=== PATIENT | female | born 1960 | race Caucasian/White ===

== ENCOUNTER → 2016-12-10 | Outpatient (CLI) | payer BC ==
--- NOTE | 2016-12-10 15:07 | CTL ---
EXAMINATION TYPE: CT Low Dose Lung DATE OF EXAM ORDERED: 12/10/2016 2:50 PM COMPARISON: None HISTORY: . Low Dose CT Lung Screening CT DLP: 83.[address] CTDI: 2.2 mGy IV CONTRAST USED: None. SCREENING VISIT: First visit COMPARISON: None. TECHNIQUE: Low dose computed tomography scan was performed through the chest at 1 millimeter thick se ctions and reconstructed images in the coronal plane at [address] DIAGNOSTIC QUALITY: Satisfactory FINDINGS: LUNG NODULES: Solid nodule left lateral segment right middle lobe measures 5 mm image 186. Small solid nodule later al segment right middle lobe measures 3.3 mm image 198. Small solid nodule right lower lobe image 232 measures 2.7 mm. No left-sided pulmonary nodules are identified. LUNGS: COPD: Severity: Mild Fibrosis: Severity:None Lymph nodes: None Other findings: None RIGHT PLEURAL SPACE: Effusion: None Calcification: None Thickening: None Pneumothorax: None LEFT PLEURAL SPACE: Effusion: None Calcification: None Thickening: None Pneumothorax: None HEART: Heart Size: Mildly enlarged Coronary calcification: Mild Pericardial effusion: None OTHER FINDINGS: Upper abdomen: No significant abnormality Bony thorax: Degenerative changes Supraclavicular region: No significant abnormalityOther: No significant abnormalityI IMPRESSION: Benign FOLLOW UP CT CHEST RECOMMENDATION: Follow-up screening in one year CT LUNG RAD: LUNG RAD CATEGORY 2
--- NOTE | 2016-12-10 15:52 | US ---
EXAMINATION TYPE: US carotid duplex BILAT DATE OF EXAM: 12/10/2016 3:09 PM COMPARISON: NONE CLINICAL HISTORY: R42 Dizziness,Z72.0 Tobacco use. SOB, COPD, dizziness EXAM MEASUREMENTS: RIGHT: Peak Systolic Velocity (PSV) cm/sec ----- Right CCA: 80.1 ----- Right ICA: 84.5 ----- Right ECA: 86.7 ICA/CCA ratio: 1.1 RIGHT: End Diastole cm/sec ----- Right CCA: 24.1 ----- Right ICA: 38.4 ----- Right ECA: 16.4 LEFT: Peak Systolic Velocity (PSV) cm/sec ----- Left CCA: 73.9 ----- Left ICA: 85.3 ----- Left ECA: 64.6 ICA/CCA ratio: 1.2 LEFT: End Diastole cm/sec ----- Left CCA: 23.7 ----- Left ICA: 36.1 ----- Left ECA: 11.5 VERTEBRALS (direction of flow): Right Vertebral: Antegrade Left Vertebral: Antegrade TECHNOLOGIST IMPRESSION: Minimal plaque noted bilateral bifurcations. NO increased velocities. No si gnificant stenosis. IMPRESSION: No hemodynamic significant stenosis of the proximal internal carotid arteries bilaterall y by Doppler criteria, an indirect measurement of carotid stenosis
--- NOTE | 2016-12-11 08:44 | ECHOF ---
Referral Reason:R42 dizziness MEASUREMENTS -------- HEIGHT: 165.1 cm WEIGHT: 77.1 kg BP: IVSd: 1.0 cm (0.6 - 1.1) LVIDd: 3.6 cm (3.9 - 5.3) LVPWd: 1.0 cm (0.6 - 1.1) IVSs: 1.6 cm LVIDs: 2.2 cm LVPWs: 1.5 cm Ao Diam: 3.0 cm (2.0 - 3.7) AV Cusp: 1.9 cm (1.5 - 2.6) LA Diam: 2.5 cm (2.7 - 3.8) MV EXCURSION: 13.189 mm (> 18.000) MV EF SLOPE: 84 mm/s (70 - 150) EPSS: 1.1 cm MV E Roge: 0.59 m/s MV DecT: 349 ms MV A Roge: 0.74 m/s MV E/A Ratio: 0.80 RAP: 5.00 mmHg RVSP: 30.27 mmHg FINDINGS -------- Sinus rhythm. This was a technically good study. There is mild concentric left ventricular hypertrophy. Overall left ventricular systolic function is normal with, an EF between 55 - 60 %. The right ventricle is normal in size and function. The left atrium is normal in size. The right atrium is normal in size. The aortic valve is trileaflet, and appears structurally normal. No aortic stenosis or regurgitation. There is trace mitral regurgitation. Trace tricuspid regurgitation present. The right ventricular systolic pressure, as measured by Doppler, is 30.27mmHg. Pulmonic valve appears structurally normal. The aortic root size is normal. The pericardium is normal. CONCLUSIONS -------- 1. Sinus rhythm. 2. Trace tricuspid regurgitation present. 3. The right ventricular systolic pressure, as measured by Doppler, is 30.27mmHg. 4. Pulmonic valve appears structurally normal. 5. The aortic root size is normal. 6. The pericardium is normal. 7. This was a technically good study. 8. There is mild concentric left ventricular hypertrophy. 9. Overall left ventricular systolic function is normal with, an EF between 55 - 60 %. 10. The right ventricle is normal in size and function. 11. The left atrium is normal in size. 12. The right atrium is normal in size. 13. The aortic valve is trileaflet, and appears structurally normal. No aortic stenosis or regurgitation. 14. There is trace mitral regurgitation. HUMAN RESOURCES INTERN: Dariana Patricio RDCS
== END | disposition home or self-care (01) ==
LOC: RADCTMAIN 14:19
PROVIDERS: ATTEND Family Medicine
DX: I34.0 Nonrheumatic mitral (valve) insufficiency (principal); I36.1 Nonrheumatic tricuspid (valve) insufficiency; R42 Dizziness and giddiness; Z72.0 Tobacco use
CPT/HCPCS: 93306; 93880; G0297

== ENCOUNTER → 2017-02-07 | Outpatient (CLI) | payer BC ==
--- NOTE | 2017-02-07 14:04 | XR ---
Lumbosacral spine HISTORY: Low back pain 5 views of the lumbosacral spine No comparisons There is a mild spinal curvature. Loss of disc height present at L5-S1. Bone mineralization is reduce d. Lumbar vertebral bodies show preserved height and alignment. Sclerosis present in the posterior el ements of the lower lumbar spine. LAP-BAND is present which shows a somewhat transverse orientation. Surgical clips present in the upper abdomen. IMPRESSION: Degenerative disc disease. Facet arthropathy and osteopenia. Postop changes. Correlate wi th any postoperative exam film to assess for possible lap band slip, correlate.
== END | disposition home or self-care (01) ==
LOC: RADXRMAIN 10:40
PROVIDERS: ATTEND Family Medicine
DX: M51.36 Other intervertebral disc degeneration, lumbar region (principal); M12.88 Other specific arthropathies, not elsewhere classified, other specified site; M85.80 Other specified disorders of bone density and structure, unspecified site; Z98.84 Bariatric surgery status
CPT/HCPCS: 72110

== ENCOUNTER 2018-12-11 11:12 | Inpatient (IN) | payer BC ==
[2018-12-11] MEDS ORDERED: THIAMINE 100 MG/ML 2 ML VIAL IVPB STA (11:49)
[2018-12-11] MEDS ORDERED: SODIUM CHLORIDE 0.9% 1,000 ML IV STA (11:49)
[2018-12-11 12:21] LABS: Basophils % (A) 1 %; Eosinophils # (A) 0.2 k/uL (0-0.7); Eosinophils % (A) 2 %; HCT 43.8 % (34.0-46.0); HGB 14.8 gm/dL (11.4-16.0); Lymphocytes # (A) 1.8 k/uL (1.0-4.8); Lymphocytes % (A) 27 %; MCH 31.9 pg (25.0-35.0); MCHC 33.8 g/dL (31.0-37.0); MCV 94.6 fL (80.0-100.0); Monocytes # (A) 0.3 k/uL (0-1.0); Monocytes % (A) 5 %; Neutrophils # (A) 4.2 k/uL (1.3-7.7); Neutrophils % (A) 63 %; Platelet Count 222 k/uL (150-450); RBC 4.63 m/uL (3.80-5.40); WBC 6.6 k/uL (3.8-10.6)
[2018-12-11 12:30] LABS: ALT 23 U/L (9-52); AST 19 U/L (14-36); Albumin 4.1 g/dL (3.5-5.0); Alcohol <10 mg/dL; Alkaline Phosphatase 71 U/L (38-126); Anion Gap 9 mmol/L; Blood Urea Nitrogen 10 mg/dL (7-17); Calcium 9.6 mg/dL (8.4-10.2); Carbon Dioxide 23 mmol/L (22-30); Chloride 107 mmol/L (98-107); Glucose 135 mg/dL (74-99); Lipase 70 U/L (23-300); Magnesium 1.8 mg/dL (1.6-2.3); Partial Thromboplastin Time 24.7 sec (22.0-30.0); Phosphorus 3.1 mg/dL (2.5-4.5); Potassium 4.2 mmol/L (3.5-5.1); Prothrombin Time 10.7 sec (9.0-12.0); Sodium 139 mmol/L (137-145); Total Bilirubin 0.6 mg/dL (0.2-1.3)
--- NOTE | 2018-12-11 13:15 | CT ---
EXAMINATION TYPE: CT brain wo con DATE OF EXAM: 12/11/2018 COMPARISON: None HISTORY: 58-year-old female pain, Double vision, dizziness TECHNIQUE: Examination was done in axial plane without intravenous contrast. Coronal and sagittal r econstructions performed. CT DLP: 1091.4 mGycm Automated exposure control for dose reduction was used. FINDINGS: There is no evidence of acute intracranial hemorrhage, acute ischemic changes, mass, mass-effect, or extra-axial fluid collection. There is no effacement of cerebral sulci or basal subarachnoid cister ns. There is no hydrocephalus. There is no midline shift. Jiang-white matter distinction is preserv ed. Paranasal sinuses and mastoid air cells are well pneumatized. Orbits and globes are intact. IMPRESSION: No acute intracranial abnormality seen.
--- NOTE | 2018-12-11 13:16 | ED ---
Altered Mental Status HPI - General Chief Complaint: Neuro Symptoms/Deficit Stated Complaint: double vision, dizziness Time Seen by Provider: 12/11/18 11:25 Source: patient, RN notes reviewed, old records reviewed Mode of arrival: wheelchair Limitations: no limitations, altered mental status - History of Present Illness Initial Comments: This is a 4-year-old female the ER for evaluation. This patient presents today for evaluation regards to diplopia. Patient has diplopia she said nausea this morning, family states he noticed it last night. Patient is also having some dizziness with position changes. No recent change in medications. Patient does have history of psychiatric illness. And chronic alcoholism MD Complaint: altered mental status, other (diplopia) -: days(s) Severity: mild Consistency of Symptoms: constant Context: alcohol abuse Associated Symptoms: difficulty walking - Related Data Home Medications Medication Instructions Recorded Confirmed LORazepam [Ativan] 0.5 mg PO HS 12/11/18 12/11/18 Sertraline [Zoloft] 200 mg PO DAILY 12/11/18 12/11/18 risperiDONE 2 mg PO HS 12/11/18 12/11/18 Allergies Allergy/AdvReac Type Severity Reaction Status Date / Time No Known Allergies Allergy Verified 12/11/18 11:42 Review of Systems ROS Statement: Those systems with pertinent positive or pertinent negative responses have been documented in the HPI. ROS Other: All systems not noted in ROS Statement are negative. Past Medical History Past Medical History: No Reported History History of Any Multi-Drug Resistant Organisms: None Reported Past Surgical History: No Surgical Hx Reported Past Psychological History: Bipolar Smoking Status: Current every day smoker Past Alcohol Use History: Daily Past Drug Use History: None Reported General Exam Limitations: no limitations General appearance: alert, in no apparent distress Head exam: Present: atraumatic, normocephalic, normal inspection Eye exam: Present: normal appearance, PERRL, EOMI, other (Patient does have monocular diplopia). Absent: scleral icterus, conjunctival injection, nystagmus, periorbital swelling ENT exam: Present: normal exam, mucous membranes moist Neck exam: Present: normal inspection. Absent: tenderness, meningismus, lymphadenopathy Respiratory exam: Present: normal lung sounds bilaterally. Absent: respiratory distress, wheezes, rales, rhonchi, stridor Cardiovascular Exam: Present: regular rate, normal rhythm, normal heart sounds. Absent: systolic murmur, diastolic murmur, rubs, gallop, clicks GI/Abdominal exam: Present: soft, normal bowel sounds. Absent: distended, tenderness, guarding, rebound, rigid Extremities exam: Present: normal inspection, full ROM, normal capillary refill. Absent: tenderness, pedal edema, joint swelling, calf tenderness Back exam: Present: normal inspection Neurological exam: Present: alert, oriented X3, CN II-XII intact Psychiatric exam: Present: normal affect, normal mood Skin exam: Present: warm, dry, intact, normal color. Absent: rash Course Vital Signs 12/11/18 11:17 Temperature 98.2 F Pulse Rate 77 Respiratory 16 Rate Blood Pressure 142/88 O2 Sat by Pulse 97 Oximetry Medical Decision Making - Medical Decision Making 4-year-old female to the area as well as increasing weakness symptoms of ataxia. Patient does appear to have more diffuse in the setting of chronic alcoholism, patient will be admitted for thiamine replacement alcohol withdrawal - Lab Data Result diagrams: 12/11/18 11:30 12/11/18 11:30 Lab Results 12/11/18 12/11/18 12/11/18 Range/Units 11:30 11:30 11:30 WBC 6.6 (3.8-10.6) k/uL RBC 4.63 (3.80-5.40) m/uL Hgb 14.8 (11.4-16.0) gm/dL Hct 43.8 (34.0-46.0) % MCV 94.6 (80.0-100.0) fL MCH 31.9 (25.0-35.0) pg MCHC 33.8 (31.0-37.0) g/dL RDW 13.0 (11.5-15.5) % Plt Count 222 (150-450) k/uL Neutrophils % 63 % Lymphocytes % 27 % Monocytes % 5 % Eosinophils % 2 % Basophils % 1 % Neutrophils # 4.2 (1.3-7.7) k/uL Lymphocytes # 1.8 (1.0-4.8) k/uL Monocytes # 0.3 (0-1.0) k/uL Eosinophils # 0.2 (0-0.7) k/uL Basophils # 0.0 (0-0.2) k/uL PT (9.0-12.0) sec INR (<1.2) APTT (22.0-30.0) sec Sodium 139 (137-145) mmol/L Potassium 4.2 (3.5-5.1) mmol/L Chloride 107 (98-107) mmol/L Carbon Dioxide 23 (22-30) mmol/L Anion Gap 9 mmol/L BUN 10 (7-17) mg/dL Creatinine 0.65 (0.52-1.04) mg/dL Est GFR (CKD-EPI)AfAm >90 (>60 ml/min/1.73 sqM) Est GFR (CKD-EPI)NonAf >90 (>60 ml/min/1.73 sqM) Glucose 135 H (74-99) mg/dL Calcium 9.6 (8.4-10.2) mg/dL Phosphorus 3.1 (2.5-4.5) mg/dL Magnesium 1.8 (1.6-2.3) mg/dL Total Bilirubin 0.6 (0.2-1.3) mg/dL AST 19 (14-36) U/L ALT 23 (9-52) U/L Alkaline Phosphatase 71 (38-126) U/L Ammonia 13 (<30) umol/L Total Protein 7.0 (6.3-8.2) g/dL Albumin 4.1 (3.5-5.0) g/dL Lipase 70 (23-300) U/L Urine Color Urine Appearance (Clear) Urine pH (5.0-8.0) Ur Specific Sprakers (1.001-1.035) Urine Protein (Negative) Urine Glucose (UA) (Negative) Urine Ketones (Negative) Urine Blood (Negative) Urine Nitrite (Negative) Urine Bilirubin (Negative) Urine Urobilinogen (<2.0) mg/dL Ur Leukocyte Esterase (Negative) Urine Opiates Screen (NotDetected) Ur Oxycodone Screen (NotDetected) Urine Methadone Screen (NotDetected) Ur Propoxyphene Screen (NotDetected) Ur Barbiturates Screen (NotDetected) U Tricyclic Antidepress (NotDetected) Ur Phencyclidine Scrn (NotDetected) Ur Amphetamines Screen (NotDetected) U Methamphetamines Scrn (NotDetected) U Benzodiazepines Scrn (NotDetected) Urine Cocaine Screen (NotDetected) U Marijuana (THC) Screen (NotDetected) Serum Alcohol <10 mg/dL 12/11/18 12/11/18 Range/Units 11:30 13:40 WBC (3.8-10.6) k/uL RBC (3.80-5.40) m/uL Hgb (11.4-16.0) gm/dL Hct (34.0-46.0) % MCV (80.0-100.0) fL MCH (25.0-35.0) pg MCHC (31.0-37.0) g/dL RDW (11.5-15.5) % Plt Count (150-450) k/uL Neutrophils % % Lymphocytes % % Monocytes % % Eosinophils % % Basophils % % Neutrophils # (1.3-7.7) k/uL Lymphocytes # (1.0-4.8) k/uL Monocytes # (0-1.0) k/uL Eosinophils # (0-0.7) k/uL Basophils # (0-0.2) k/uL PT 10.7 (9.0-12.0) sec INR 1.0 (<1.2) APTT 24.7 (22.0-30.0) sec Sodium (137-145) mmol/L Potassium (3.5-5.1) mmol/L Chloride (98-107) mmol/L Carbon Dioxide (22-30) mmol/L Anion Gap mmol/L BUN (7-17) mg/dL Creatinine (0.52-1.04) mg/dL Est GFR (CKD-EPI)AfAm (>60 ml/min/1.73 sqM) Est GFR (CKD-EPI)NonAf (>60 ml/min/1.73 sqM) Glucose (74-99) mg/dL Calcium (8.4-10.2) mg/dL Phosphorus (2.5-4.5) mg/dL Magnesium (1.6-2.3) mg/dL Total Bilirubin (0.2-1.3) mg/dL AST (14-36) U/L ALT (9-52) U/L Alkaline Phosphatase (38-126) U/L Ammonia (<30) umol/L Total Protein (6.3-8.2) g/dL Albumin (3.5-5.0) g/dL Lipase (23-300) U/L Urine Color Light Yellow Urine Appearance Clear (Clear) Urine pH 7.0 (5.0-8.0) Ur Specific Sprakers 1.003 (1.001-1.035) Urine Protein Negative (Negative) Urine Glucose (UA) Negative (Negative) Urine Ketones Negative (Negative) Urine Blood Negative (Negative) Urine Nitrite Negative (Negative) Urine Bilirubin Negative (Negative) Urine Urobilinogen <2.0 (<2.0) mg/dL Ur Leukocyte Esterase Negative (Negative) Urine Opiates Screen Not Detected (NotDetected) Ur Oxycodone Screen Not Detected (NotDetected) Urine Methadone Screen Not Detected (NotDetected) Ur Propoxyphene Screen Not Detected (NotDetected) Ur Barbiturates Screen Not Detected (NotDetected) U Tricyclic Antidepress Not Detected (NotDetected) Ur Phencyclidine Scrn Not Detected (NotDetected) Ur Amphetamines Screen Not Detected (NotDetected) U Methamphetamines Scrn Not Detected (NotDetected) U Benzodiazepines Scrn Not Detected (NotDetected) Urine Cocaine Screen Not Detected (NotDetected) U Marijuana (THC) Screen Not Detected (NotDetected) Serum Alcohol mg/dL - Radiology Data Radiology results: report reviewed (CT brain negative for acute disease, chest x-rays negative for acute disease), image reviewed Disposition Clinical Impression: Monocular diplopia of both eyes, Wernickes encephalopathy, Alcoholism Disposition: ADMITTED IP TO THIS [facility] Condition: Fair Is patient prescribed a controlled substance at d/c from ED?: No Referrals: Steven Romo MD [Primary Care Provider] - 1-2 days
[2018-12-11] MEDS ORDERED: THIAMINE 200 MG in SODIUM CHLORIDE 0.9% 100 ML IVPB ONE (13:30)
[2018-12-11 13:58] LABS: Appearance,Urine Clear (Clear); Bilirubin,Urine Negative (Negative); Blood,Urine Negative (Negative); Color,Urine Light Yellow; Glucose,Urine (UA) Negative (Negative); Ketones,Urine Negative (Negative); Leukocyte Esterase,Urine Negative (Negative); Nitrite,Urine Negative (Negative); Protein,Urine Negative (Negative); Specific Gravity,Urine 1.003 (1.001-1.035); Urobilinogen,Urine <2.0 mg/dL (<2.0)
[2018-12-11 14:12] LABS: Amphetamine Screen,Urine Not Detected (NotDetected); Barbiturate Screen,Urine Not Detected (NotDetected); Benzodiazepines Screen,Urine Not Detected (NotDetected); Cocaine Screen,Urine Not Detected (NotDetected); Methadone Screen, Urine Not Detected (NotDetected); Opiate Screen,Urine Not Detected (NotDetected); Oxycodone Screen, Urine Not Detected (NotDetected); Phencyclidine Screen,Urine Not Detected (NotDetected); Tricyclic Antidepressant,Urine Not Detected (NotDetected); Urn Cannabinoid Scrn Not Detected (NotDetected)
[2018-12-11] MEDS ORDERED: SODIUM CHLORIDE 0.9% 1,000 ML IV ONE (14:19)
[2018-12-11] MEDS ORDERED: LORazepam 2 MG/ML INJ IV PRN ×3 (14:19)
[2018-12-11] MEDS: THIAMINE 100 MG TAB PO SCH (18:20)
[2018-12-11] MEDS: DEXTROSE 5%-0.45% NACL 1,000 ML IV SCH (18:21)
[2018-12-11] MEDS: SERTRALINE 100 MG TAB PO SCH (20:03)
[2018-12-11] MEDS ORDERED: risperiDONE 2 MG TAB PO SCH (21:00)
[2018-12-11] MEDS: LORazepam 2 MG/ML INJ IV PRN (21:52)
[2018-12-12] MEDS: DEXTROSE 5%-0.45% NACL 1,000 ML IV SCH ×2 (01:47→14:28)
[2018-12-12] MEDS: SERTRALINE 100 MG TAB PO SCH (07:24)
[2018-12-12] MEDS: THIAMINE 100 MG TAB PO SCH ×2 (07:24→14:28)
[2018-12-12] MEDS ORDERED: ACETAMINOPHEN TAB 325 MG TAB PO PRN (07:24)
[2018-12-12] MEDS ORDERED: ENOXAPARIN 40 MG/0.4 ML SYRINGE SQ SCH (09:00)
[2018-12-12] MEDS ORDERED: MULTIVITAMINS, THERA 1 EACH TAB PO SCH (12:00)
[2018-12-12 14:55] VITALS: BP 109/69; PULSE 62; RESP 16; TEMP 97.7
--- NOTE | 2018-12-12 16:03 | P.HPIM ---
History of Present Illness H&P Date: 12/12/18 Chief Complaint: Double vision This is history and physical 58-year-old white female who struggles with alcoholism over the last 20+ years. She drinks between 4-8 beer daily. The patient has had no significant falls but does have some form of orthostasis recently. No previous history of this in the past. She states that the symptoms have started in the last 24-36 hours. Head trauma stated. No sniffing nausea, vomiting or diarrhea is stated per no overt chest pressure. Evaluation emergency room did show normal computed tomography scan of the head without contrast. However, she does complain of headache. She has right eye dominant by history. No fever or chills are stated. Review of Systems Constitutional: Reports fatigue Eyes: denies blurred vision, denies pain Ears, nose, mouth and throat: Denies headache, Denies sore throat Cardiovascular: Denies chest pain, Denies shortness of breath Respiratory: Denies cough Gastrointestinal: Denies abdominal pain, Denies diarrhea, Denies nausea, Denies vomiting Genitourinary: Denies dysuria, Denies hematuria Musculoskeletal: Denies myalgias Neurological: Reports ataxia, Reports double vision, Reports headaches, Reports weakness, Denies change in mentation, Denies change in smell/taste, Denies confusion, Denies convulsions, Denies numbness Psychiatric: Denies anxiety, Denies depression Endocrine: Denies fatigue, Denies weight change Past Medical History Past Medical History: No Reported History History of Any Multi-Drug Resistant Organisms: None Reported Past Surgical History: No Surgical Hx Reported Past Psychological History: Bipolar Smoking Status: Current every day smoker Past Alcohol Use History: Daily Past Drug Use History: None Reported Medications and Allergies Home Medications Medication Instructions Recorded Confirmed Type LORazepam [Ativan] 0.5 mg PO HS 12/11/18 12/11/18 History Sertraline [Zoloft] 200 mg PO DAILY 12/11/18 12/11/18 History risperiDONE 2 mg PO HS 12/11/18 12/11/18 History Allergies Allergy/AdvReac Type Severity Reaction Status Date / Time No Known Allergies Allergy Verified 12/11/18 11:42 Physical Exam Vitals: Vital Signs Temp Pulse Resp BP Pulse Ox 12/12/18 14:54 97.7 F 62 16 109/69 96 12/12/18 07:00 97.8 F 61 19 111/70 12/11/18 23:35 97.5 F L 68 17 105/66 97 12/11/18 19:35 97.5 F L 60 17 109/67 98 12/11/18 16:30 98.7 F 62 12 109/72 97 Intake and Output 12/12/18 12/12/18 12/12/18 06:59 14:59 22:59 Intake Total 250 200 Balance 250 200 Intake: Oral 250 200 Other: Voiding Method Toilet Toilet # Voids 2 2 - Constitutional General appearance: no acute distress - EENT Eyes: EOMI - Neck Neck: no lymphadenopathy - Cardiovascular Rhythm: regular Heart sounds: normal: S1, S2 Abnormal Heart Sounds: no S3 Gallop - Gastrointestinal General gastrointestinal: soft, no tenderness - Neurologic Neurologic: CNII-XII intact - Musculoskeletal Musculoskeletal: generalized weakness - Psychiatric Psychiatric: A&O x's 3, appropriate affect, intact judgment & insight Results CBC & Chem 7: 12/11/18 11:30 12/11/18 11:30 Thrombosis Risk Factor Assmnt - Choose All That Apply Any of the Below Risk Factors Present?: No Assessment and Plan (1) Alcoholism Current Visit: Yes Status: Acute Code(s): F10.20 - ALCOHOL DEPENDENCE, UNCOMPLICATED SNOMED Code(s): 8190381 (2) Monocular diplopia of both eyes Current Visit: Yes Status: Acute Code(s): H53.2 - DIPLOPIA SNOMED Code(s): 06241199 (3) Smoker Current Visit: Yes Status: Acute Code(s): F17.200 - NICOTINE DEPENDENCE, UNSPECIFIED, UNCOMPLICATED SNOMED Code(s): 01310517 (4) Wernickes encephalopathy Current Visit: Yes Status: Acute Code(s): E51.2 - WERNICKE'S ENCEPHALOPATHY SNOMED Code(s): 86803689 Plan: Continue vitamin B supplementation with IV hydration. Neurology consult. Given her continued double vision, we will check MRI of the brain without contrast. Check CBC and CMP in a.m. with magnesium. Dr. Valdovinos's group will be covering for the weekend. Prognosis is guarded secondary to her alcoholism. Had a long discussion and therapy session about trying to decrease alcoholic use. Discharge planning/social media coordinator. If MRI is negative, we will follow up with neurology. Otherwise, consider transfer if there is neurologic finding in the cerebellar or intracranial area. See orders otherwise.
[2018-12-12] MEDS: LORazepam 2 MG/ML INJ IV PRN (17:07)
--- NOTE | 2018-12-12 18:54 | MR ---
EXAMINATION TYPE: MR brain wo con DATE OF EXAM: 12/12/2018 COMPARISON: HISTORY: Double vision, dizziness Standard multiplanar, multisequence MRI departmental protocol Multiplanar, multisequence images of the brain were acquired. Diffusion weighted imaging was performe d. FINDINGS: There is mild cerebral cortical atrophy. There is no mass effect nor midline shift. There i s no sign of intracranial hemorrhage. The brainstem is intact. Corpus callosum is intact. Sella turci ca appears normal. There is no evidence of cortical infarct. There is no evidence of posterior fossa mass. Internal auditory canals appear normal. The remainder of the exam is unremarkable. IMPRESSION: Mild atrophy appropriate for age. Otherwise negative exam.
--- NOTE | 2018-12-12 19:17 | P.DS ---
Providers Date of admission: 12/11/18 14:19 Attending physician: Steven Romo Primary care physician: Steven Romo - Discharge Diagnosis(es) (1) Alcoholism Current Visit: Yes Status: Acute (2) Monocular diplopia of both eyes Current Visit: Yes Status: Acute (3) Smoker Current Visit: Yes Status: Acute (4) Wernickes encephalopathy Current Visit: Yes Status: Acute Hospital Course: The patient was essentially brought in due to Wernicke's encephalopathy alcoholic encephalopathy and double vision. She is a chronic alcoholic and drinks about 4-8 beers daily for over 20 years. We had a long discussion regarding appropriate abstinence and slowly weaning versus alcoholic Anonymous. The patient's double vision did continue. MRI did not show significant cerebellar issue or optic nerve elements. The patient will be discharged to follow-up with myself to refer to neurology and possible ophthalmology. The patient is discharged in guarded condition because of her multiple comorbidities of alcoholism. Patient Condition at Discharge: Fair Plan - Discharge Summary Discharge Rx Participant: No New Discharge Prescriptions: No Action risperiDONE 2 mg PO HS Sertraline [Zoloft] 200 mg PO DAILY LORazepam [Ativan] 0.5 mg PO HS Discharge Medication List LORazepam [Ativan] 0.5 mg PO HS 12/11/18 [History] Sertraline [Zoloft] 200 mg PO DAILY 12/11/18 [History] risperiDONE 2 mg PO HS 12/11/18 [History] Follow up Appointment(s)/Referral(s): Steven Romo MD [Primary Care Provider] - 1-2 days
== END 2018-12-12 20:00 | disposition home or self-care (01) | DRG 897 ==
LOC: EC 11:12 → 4SSUR 14:19
PROVIDERS: ADMIT Family Medicine; ATTEND Family Medicine
DX: F10.239 Alcohol dependence with withdrawal, unspecified (principal); E51.2 Wernicke's encephalopathy; F31.9 Bipolar disorder, unspecified; H53.2 Diplopia; F17.200 Nicotine dependence, unspecified, uncomplicated; Y90.0 Blood alcohol level of less than 20 mg/100 ml; R27.0 Ataxia, unspecified; Z79.899 Other long term (current) drug therapy
CPT/HCPCS: 36415; 70450; 70551; 80053; 80306; 80320; 81003; 82140; 83690; 83735; 84100; 85025; 85610; 85730; 96361; 96365; 99285

== ENCOUNTER → 2021-03-30 | Outpatient (CLI) | payer BC | END | disposition home or self-care (01) | DX: Z12.31 Encounter for screening mammogram for malignant neoplasm of breast (principal) | CPT/HCPCS: 77067 ==

== ENCOUNTER → 2021-04-06 | Outpatient (CLI) | payer BC | END | disposition home or self-care (01) ==

== ENCOUNTER → 2021-12-14 | Outpatient (CLI) | payer BC ==
--- NOTE | 2021-12-14 08:13 | CTL ---
EXAMINATION TYPE: CT Low Dose Lung DATE OF EXAM ORDERED: 12/14/2021 HISTORY: Long-term tobacco use. Lung cancer screening CT DLP: [address]DI: 1.95 mGy Automated exposure control for dose reduction was used. SCREENING VISIT: First after baseline COMPARISON: Prior study 2017 TECHNIQUE: Low dose computed tomography scan was performed through the chest at 1 mm thick sections a nd reconstructed images in multiple planes at 1 mm and [address] DIAGNOSTIC QUALITY: Limited, but interpretable FINDINGS: LUNG NODULES: Present, detailed below: Grossly stable 5 mm right middle lobe nodule axial image 182. Stable 3 mm nodule just inferior to thi s axial image 192. Stable 3 mm peripheral right lower lobe nodules axial image 209 and 241. Few addit ional scattered micronodules. No new greater than 5 mm pulmonary nodules. LUNGS: COPD: Severity: Mild to moderate Fibrosis: Severity: Mild Lymph nodes: None Other findings: None RIGHT PLEURAL SPACE: Effusion: None Calcification: None Thickening: None Pneumothorax: None LEFT PLEURAL SPACE: Effusion: None Calcification: None Thickening: None Pneumothorax: None HEART: Heart Size: Normal Coronary Calcification: None Pericardial Effusion: None OTHER FINDINGS: Upper abdomen: Small size hiatal hernia redemonstrated. Lap band device again seen position stable be low this. Cholecystectomy clips redemonstrated on localizer. Bony thorax: [id number] multilevel spurring. Supraclavicular region: None Other: None IMPRESSION: Stable small nodules. No new or enlarging greater than [address] LUNG RAD AND [address] CHEST RECOMMENDATION: Lung-Rad 2 Benign Appearance or Behavior: Continue annual sc reening with LDCT in 12 months. S Modifier (other clinically significant findings): None
== END | disposition home or self-care (01) ==
LOC: RADCTMAIN 06:26
PROVIDERS: ATTEND Family Medicine
DX: Z12.2 Encounter for screening for malignant neoplasm of respiratory organs (principal); R91.8 Other nonspecific abnormal finding of lung field; Z87.891 Personal history of nicotine dependence
CPT/HCPCS: 71271

== ENCOUNTER → 2024-08-21 | Outpatient (CLI) | payer MEDICARE, BC ==
--- NOTE | 2024-08-21 11:09 | BD ---
EXAMINATION TYPE: Axial Bone Density DATE OF EXAM: 08/21/2024 CLINICAL HISTORY: 64 years old Female. ICD-10 CODE: Z78.0 ASYMPTOMATIC MENOPAUSAL STA , Additional History: Height: 63.5 Weight: 158 FRAX RISK QUESTIONS: Secondary Osteoporosis: yes 3. Menopause before 45: at age 43, early hyst Current Tobacco Use: yes RISK FACTORS HISTORY OF: MEDICATIONS: flinstone vitamin only EXAM MEASUREMENTS: Bone mineral densitometry was performed using the [employer] System. Bone mineral density as measured about the Lumbar spine is: ----- L1-L4(G/cm2): 1.096 T Score Values are as follows: ----- L1: -1.3 ----- L2: -1.4 ----- L3: -0.8 ----- L4: 0.4 ----- L1-L4: -0.7 Z Score Values are as follows: ----- L1: 0.1 ----- L2: -0.1 ----- L3: 0.6 ----- L4: 1.8 ----- L1-L4: 0.7 Bone mineral density has: Decreased -2.3% since study of: 05.18.2015 Bone mineral density about the R hip (g/cm2): 0.727 Bone mineral density about the L hip (g/cm2): 0.718 T Score values are as follows: -----R Neck: -2.1 -----L Neck: ` -2.2 -----R Total: -2.2 -----L Total: -2.3 Z Score values are as follows: -----R Neck: -0.8 -----L Neck: -0.8 -----R Total: -1.1 -----L Total: -1.2 Bone mineral density has: Decreased -9.4% since study of: 05.18.2015 FRAX%s: The graph provided illustrates a 12.6% chance for a major osteoporotic fx and a 3.6% chance f or the hips probability for fx in 10 years time. IMPRESSION: Osteopenia (T Score between -2.5 and -1). There is slightly increased risk of fracture and the patient may be considered for treatment. Re-Screen 2-5 years. NOTE: T-SCORE=SD OF THE YOUNG ADULT MEAN. [facility], , 08/21/2024 11:06 AM
--- NOTE | 2024-08-21 11:39 | CTL ---
EXAMINATION TYPE: CT Low Dose Lung DATE OF EXAM ORDERED: 08/21/2024 COMPARISON: CT Low Dose Lung 12/14/2021, 12/10/2016 CLINICAL INDICATION: Female, 64 years old with history of Z12.2 SCREENING; PHH, Current every day smo ker x 50 years, Lung cancer screening, History of Smoking/tobacco use. TECHNIQUE: Low dose computed tomography scan was performed through the chest at 1 mm thick sections a nd reconstructed images in multiple planes at 1 mm and [address] DLP: 87.[address] CTDI: 2.3 mGy Automated exposure control for dose reduction was used. CT DIAGNOSTIC QUALITY: Satisfactory FINDINGS: Nodules: Few stable scattered pulmonary nodules with exams including a right middle lobe 4.3 mm solid pulmonar y nodule (series 6, image 41). Right lower lobe peripheral 2.7 mm pulmonary nodule (series 6, image 4 2), right lower lobe 8 mm pulmonary nodule (series 6, image 36) and a left upper lobe 2.3 mm pulmonar y nodule (series 6, image 33). No definitive new or larger pulmonary nodules. LUNGS: COPD: Severity: Mild Fibrosis: Severity: None Lymph nodes: None Other findings: None RIGHT PLEURAL SPACE: Effusion: None Calcification: None Thickening: None Pneumothorax: None LEFT PLEURAL SPACE: Effusion: None Calcification: None Thickening: None Pneumothorax: None HEART: Heart Size: Normal Coronary Calcification: None Pericardial Effusion: None OTHER FINDINGS: Upper abdomen: Postsurgical changes from gastric lap band and cholecystectomy. Bony thorax: None Supraclavicular region: None Other: None IMPRESSION: 1. Few stable scattered pulmonary nodules measuring up to 8 mm dating back to 2017 and considered bandar ign. No new or enlarging pulmonary nodules. 2. Mild COPD changes. CT LUNG RAD AND CT CHEST RECOMMENDATION: Lung-Rad 2 Benign Appearance or Behavior: Continue annual sc reening with LDCT in 12 months. S Modifier (other clinically significant findings): None [facility], , 08/21/2024 11:36 AM
--- NOTE | 2024-08-24 08:19 | MM ---
Reason for Exam: Screening (asymptomatic). Last mammogram was performed 3 year(s) and 4 month(s) ago. Patient History: Menarche at age 10. First Full-Term at age 21. Hysterectomy at age 31. Hormonal Contraceptives for 7 years from age 19 until age 26. Cyst Aspiration on the Right side. Risk Values: Zohreh 5 year model risk: 1.5%. NCI Lifetime model risk: 5.4%. Prior Study Comparison: 05/18/2015 Bilateral Screening Mammogram, [facility]. 03/30/2021 Bilateral Screening Mammogram, [facility]. 04/06/2021 Right Diagnostic Mammogram, [facility]. Tissue Density: The breasts are heterogeneously dense, which may obscure small masses. Findings: Analyzed By CAD. There is no suspicious group of microcalcifications or new suspicious mass in either breast. Benign-appearing calcifications. Overall Assessment: Benign, BI-RAD 2 Management: Screening Mammogram of both breasts in 1 year. . Patient should continue monthly self-breast exams. A clinical breast exam by your physician is recommended on an annual basis. This exam should not preclude additional follow-up of suspicious palpable abnormalities. Note on Zohreh scores and lifetime risk: 1. A Zohreh score greater than 3% is considered moderate risk. If this is the case, consider specialist referral to assess eligibility for a risk reducing agent. 2. If overall lifetime risk for the development of breast cancer is 20% or higher, the patient may qualify for future screening with alternating mammogram and breast MRI. [facility], , 08/24/2024 8:16 AM. Electronically signed and approved by: Josh Crowell M.D. Radiolog[facility]
== END | disposition home or self-care (01) ==
LOC: RADMAMWWP 09:55
PROVIDERS: ATTEND Family Medicine
DX: Z12.31 Encounter for screening mammogram for malignant neoplasm of breast (principal); Z12.2 Encounter for screening for malignant neoplasm of respiratory organs; J44.9 Chronic obstructive pulmonary disease, unspecified; R92.333 Mammographic heterogeneous density, bilateral breasts; M85.89 Other specified disorders of bone density and structure, multiple sites; F17.210 Nicotine dependence, cigarettes, uncomplicated; Z78.0 Asymptomatic menopausal state
CPT/HCPCS: 71271; 77063; 77067; 77080